=== PATIENT | female | born 1985 | race Hispanic/Latino ===

== ENCOUNTER 2022-01-01 14:44 | Emergency (ER) | payer SELFPAY ==
[2022-01-01] MEDS ORDERED: Ketorolac Tromethamine 30 MG/ML VIAL ONE (15:42)
[2022-01-01] MEDS ORDERED: diphenhydrAMINE 50 MG/ML VIAL ONE (15:42)
[2022-01-01] MEDS ORDERED: Metoclopramide HCl 10 MG/2 ML VIAL ONE (15:42)
== END 2022-01-01 17:16 | disposition home or self-care (01) ==
LOC: ERS 14:44
DX: R51.9 Headache, unspecified (principal); R29.700 NIHSS score 0; E78.5 Hyperlipidemia, unspecified; F17.210 Nicotine dependence, cigarettes, uncomplicated
CPT/HCPCS: 70450; 96374; 96375; J1200; J1885; J2765